=== PATIENT | male | born 1945 | race Two or more races ===

== ENCOUNTER 2023-03-25 12:00 | Inpatient (IN) | payer OTHER ==
[~2023-03-25] VITALS: Ht 200.7 cm; Wt 72.6 kg
[2023-04-01 16:10] LABS: HEMATOCRIT 42.9 % (39.0-48.0); HEMOGLOBIN 14.4 g/dL (13-16.00); MEAN CELL VOLUME 89.7 fL (80.0-100.00); MEAN CORPUSCULAR HEMOGLOBIN 30.1 pg (27.00-32.0); MEAN CORPUSCULAR HGB CONC 33.6 g/dl (32.0-36.0); PLATELET COUNT 216 K/uL (150-450); RED BLOOD COUNT 4.78 M/uL (4.00-6.00); RED CELL DISTRIBUTION WIDTH 14.8 % (11.5-14.5)
[2023-04-02 13:42] LABS: HEMATOCRIT 44.3 % (39.0-48.0); HEMOGLOBIN 14.9 g/dL (13-16.00); MEAN CELL VOLUME 89.4 fL (80.0-100.00); MEAN CORPUSCULAR HEMOGLOBIN 30.1 pg (27.00-32.0); MEAN CORPUSCULAR HGB CONC 33.7 g/dl (32.0-36.0); PLATELET COUNT 237 K/uL (150-450); RED BLOOD COUNT 4.95 M/uL (4.00-6.00); RED CELL DISTRIBUTION WIDTH 14.4 % (11.5-14.5)
[2023-04-02 14:09] LABS: CALCIUM 9.3 mg/dL (8.5-10.1); CREATININE SERUM 1.21 mg/dL (0.70-1.30); GFR 58.15; MAGNESIUM 2.6 mg/dL (1.8-2.4); PHOSPHOROUS 2.8 mg/dL (2.5-4.9); POTASSIUM 3.9 mEq/L (3.5-5.1)
== END 2023-04-03 17:53 | disposition home or self-care (01) | DRG 331 ==
LOC: O/R 04-01 05:06 → SURH 04-01 12:00 → O/R 04-01 18:26 → SURH 04-01 22:56
PROVIDERS: Internal Medicine Geriatric Medicine; ADMIT Colon & Rectal Surgery; ATTEND Colon & Rectal Surgery
PROC: 07BB4ZZ Excision of Mesenteric Lymphatic, Percutaneous Endoscopic Approach (ICD-10-PCS; 2023-04-01)
PROC: 0DBU4ZZ Excision of Omentum, Percutaneous Endoscopic Approach (ICD-10-PCS; 2023-04-01)
PROC: 0DJD8ZZ Inspection of Lower Intestinal Tract, Via Natural or Artificial Opening Endoscopic (ICD-10-PCS; 2023-04-01)
PROC: 0DTF4ZZ Resection of Right Large Intestine, Percutaneous Endoscopic Approach (ICD-10-PCS; principal; 2023-04-01 15:00)
DX: D12.2 Benign neoplasm of ascending colon (principal); K62.82 Dysplasia of anus

== ENCOUNTER 2023-04-03 22:40 | Emergency (ER) | payer OTHER ==
[~2023-04-03] VITALS: Ht 170.2 cm; Wt 72.6 kg
[2023-04-03 23:20] LABS: HEMATOCRIT 42.3 % (39.0-48.0); HEMOGLOBIN 14.5 g/dL (13-16.00); MEAN CORPUSCULAR HEMOGLOBIN 31.2 pg (27.00-32.0); MEAN CORPUSCULAR HGB CONC 34.3 g/dl (32.0-36.0); PLATELET COUNT 241 K/uL (150-450); RED BLOOD COUNT 4.65 M/uL (4.00-6.00); RED CELL DISTRIBUTION WIDTH 14.3 % (11.5-14.5)
== END 2023-04-03 23:37 | disposition home or self-care (01) ==
LOC: ER 22:41
PROVIDERS: General Practice
DX: L76.32 Postprocedural hematoma of skin and subcutaneous tissue following other procedure (principal); T14.8XXA Other injury of unspecified body region, initial encounter

== ENCOUNTER → 2023-04-11 | Emergency (ER) | payer OTHER ==
[~2023-04-11] VITALS: Ht 170.2 cm; Wt 72.6 kg
[~2023-04-11] MED LIST: FAMOtidine 10 MG/ML (4ML VIAL) IV PUSH STA; HYOSCYAMINE SULFATE 0.125 MG TAB.SUBL SL STA; KETOROLAC TROMETHAMINE 60 MG VIAL IM STA; METOCLOPRAMIDE HCL 5 MG/ML VIAL IM STA; RINGERS SOLUTION,LACTATED 1,000 ML IV STA
[2023-04-12 03:52] LABS: HEMATOCRIT 38.8 % (39.0-48.0); MEAN CELL VOLUME 88.8 fL (80.0-100.00); MEAN CORPUSCULAR HEMOGLOBIN 29.7 pg (27.00-32.0); MEAN CORPUSCULAR HGB CONC 33.4 g/dl (32.0-36.0); PLATELET COUNT 387 K/uL (150-450); RED BLOOD COUNT 4.37 M/uL (4.00-6.00); RED CELL DISTRIBUTION WIDTH 14.5 % (11.5-14.5)
[2023-04-12 04:09] LABS: CREATININE SERUM 0.91 mg/dL (0.70-1.30); GFR 80.79; POTASSIUM 3.86 mEq/L (3.5-5.1)
== END | disposition home or self-care (01) ==
LOC: ER 22:02
DX: K29.70 Gastritis, unspecified, without bleeding (principal); K31.84 Gastroparesis
CPT/HCPCS: 36415; 96365; 96372; 99282; J1885; J2765; J3490